=== PATIENT | female | born 1965 | race American Indian/Alaskan Native ===

== ENCOUNTER 2021-03-02 15:09 | Outpatient (CLI) | payer MEDICAID, OTHER ==
--- NOTE | 2021-03-02 17:19 | Vascular Lab Report ---
DUPLEX DOPPLER LOWER EXTREMITY VEINS, RIGHT INDICATION / CLINICAL INFORMATION: STAT RT LEG PAIN. TECHNIQUE: Duplex doppler imaging was performed through the veins of the right lower extremity using venous compression and other maneuvers. COMPARISON: None available. FINDINGS: RIGHT COMMON FEMORAL VEIN: Negative. RIGHT FEMORAL VEIN: Negative. RIGHT POPLITEAL VEIN: Negative. RIGHT CALF VEINS: Acute DVT is noted in the posterior tibial veins. ADDITIONAL FINDINGS: Thrombus is noted in the lesser saphenous vein IMPRESSION: 1. Positive for DVT in the posterior tibial veins. Thrombus is also noted in the lesser saphenous vei n. Patient was sent to the emergency department. Results phoned to the charge nurse in the emergency dep artment. Signer Name: Jeet Bingham MD Signed: 03/02/2021 5:15 PM Workstation Name: [id number]
== END 2021-03-02 15:10 | disposition home or self-care (01) ==
LOC: VAS 15:09
PROVIDERS: ATTEND Emergency Medicine
DX: I82.491 Acute embolism and thrombosis of other specified deep vein of right lower extremity (principal)

== ENCOUNTER 2021-03-02 16:51 | Emergency (ER) | payer MEDICAID, OTHER ==
--- NOTE | 2021-03-02 17:43 | Emergency Department Report ---
ED Lower Extremity HPI - General Stated Complaint: RT FLANK PAIN Time Seen by Provider: 03/02/21 17:28 - History of Present Illness Initial Comments: Chief complaint: "My leg is just hurting.". HPI: This is a 55-year-old female with history of DVT, CVA recent pneumonia who presents with right leg pain since Friday. Gradual onset. Moderately severe at 10. Pain begins at the posterior right knee rating to the right heel. No swelling no trauma. 2 weeks ago patient was admitted at [facility] for pneumonia. In 2016 during treatment for CVA, patient developed left lower extremity DVT. She is currently not taking any medications. Her PCP arrange for Doppler ultrasound today after her appointment to evaluate right lower leg. Patient was diagnosed with DVT and referred to ER. I have reviewed duplex Doppler report: Impression positive for DVT in the posterior tibial veins, thrombus also noted in the lesser saphenous. PCP Dr. Kraft. Medications include B12 folate aspirin senna gabapentin Keppra lisinopril magnesium meloxicam mirtazapine simvastatin vitamin D3 Radha PEÑALOZA Complaint: other (Right leg posterior pain from the right knee radiating to the foot) Injury: Leg: Right, Knee: Right Severity: severe Severity scale (0 -10): 8 Improves With: rest Worsens With: weight bearing, movement, palpation Other Symptoms: other (Patient denies chest pain denies shortness of breath) Treatments Prior to Arrival: other (Evaluation by PCP, Doppler ultrasound outpatient radiology) - Related Data Previous Rx's Medication Instructions Recorded Last Taken Type Apixaban [Eliquis starter pack] 5 mg PO BID #1 tab.ds.pk 03/02/21 Unknown Rx Apixaban [Eliquis] 5 mg PO BID 30 Days #60 tablet 03/02/21 Unknown Rx Allergies Allergy/AdvReac Type Severity Reaction Status Date / Time No Known Allergies Allergy Unverified 03/02/21 17:12 ED Review of Systems ROS: Stated complaint: RT FLANK PAIN Other details as noted in HPI Comment: All other systems reviewed and negative Constitutional: denies: chills, fever, malaise Respiratory: denies: cough, shortness of breath Cardiovascular: denies: chest pain Gastrointestinal: denies: abdominal pain, nausea, vomiting Musculoskeletal: myalgia Skin: denies: rash, lesions ED Past Medical Hx - Past Medical History Previous Medical History?: Yes Hx CVA: Yes Hx Deep Vein Thrombosis: Yes (Left lower DVT 2016) Hx Arthritis: Yes - Family History Family history: diabetes, hypertension - Social History Smoking Status: Never Smoker Substance Use Type: None - Medications Home Medications: Home Medications Medication Instructions Recorded Confirmed Last Taken Type Apixaban [Eliquis starter pack] 5 mg PO BID #1 tab.ds.pk 03/02/21 Unknown Rx Apixaban [Eliquis] 5 mg PO BID 30 Days #60 tablet 03/02/21 Unknown Rx ED Physical Exam - General Limitations: No Limitations General appearance: alert, in no apparent distress - Head Head exam: Present: atraumatic, normocephalic - Eye Eye exam: Present: normal appearance - ENT ENT exam: Present: mucous membranes moist - Neck Neck exam: Present: normal inspection, full ROM - Respiratory Respiratory exam: Present: normal lung sounds bilaterally. Absent: respiratory distress, wheezes, rales, rhonchi - Cardiovascular Cardiovascular Exam: Present: regular rate, normal rhythm, normal heart sounds. Absent: systolic murmur, diastolic murmur, rubs, gallop - GI/Abdominal GI/Abdominal exam: Present: soft, normal bowel sounds. Absent: distended, tenderness, guarding, rebound - Extremities Exam Extremities exam: Present: other (Diffuse tenderness in the posterior right lower extremity, 2+ DP pulse intact, normal coloration no edema) - Back Exam Back exam: Present: normal inspection - Neurological Exam Neurological exam: Present: alert, oriented X3 - Psychiatric Psychiatric exam: Present: normal affect, normal mood - Skin Skin exam: Present: warm, dry, intact, normal color. Absent: rash ED Course Vital Signs 03/02/21 03/02/21 03/02/21 17:10 17:48 17:53 Temperature 97.7 F 98.9 F Pulse Rate 70 88 Respiratory 20 19 19 Rate Blood Pressure 124/89 Blood Pressure 121/78 [Right] O2 Sat by Pulse 99 99 99 Oximetry ED Lower Extremity MDM - Lab Data Result diagrams: 03/02/21 17:45 - Radiology Data Radiology results: report reviewed Patient Name: BOY THAYER Gender: Female Date of : 1965 Referring Provider: GEOVANNI KRAFT Organization: [facility] Accession Number: [id number] Requested Date: March 02, 2021 : Report Status: Final Requested Procedure: 1 Procedure Description: VL venous duplex LE RT Modality: VL Findings Reporting MD: Jeet Bingham Dictation Time: March 02, 2021 16:15 Music Sound Light Technician: Not available Scratch Finisher Date: DUPLEX DOPPLER LOWER EXTREMITY VEINS, RIGHT INDICATION / CLINICAL INFORMATION: STAT RT LEG PAIN. TECHNIQUE: Duplex doppler imaging was performed through the veins of the right lower extremity using venous compression and other maneuvers. COMPARISON: None available. FINDINGS: RIGHT COMMON FEMORAL VEIN: Negative. RIGHT FEMORAL VEIN: Negative. RIGHT POPLITEAL VEIN: Negative. RIGHT CALF VEINS: Acute DVT is noted in the posterior tibial veins. ADDITIONAL FINDINGS: Thrombus is noted in the lesser saphenous vein IMPRESSION: 1. Positive for DVT in the posterior tibial veins. Thrombus is also noted in the lesser saphenous vein. Patient was sent to the emergency department. Results phoned to the charge nurse in the emergency department. Signer Name: Jeet Bingham MD Signed: 03/02/2021 4:15 PM Workstation Name: [id number] - Medical Decision Making Acute DVT: CBC chemistry PT PT PTT obtained to exclude kidney failure, thrombocytopenia or coagulopathy. Patient is appropriate for outpatient therapy with Eliquis. First dose provided in the emergency department. I have encouraged patient to stop taking meloxicam until she is reevaluated by her PCP CBC chemistry PTT within normal limits. I prescribed 7-day starter pack of Eliquis. Patient received first dose in the emergency department. Also prescribed 30 additional days for 40 days total. She understands to follow-up with her PCP for further treatment evaluation. Critical care attestation.: If time is entered above; I have spent that time in minutes in the direct care of this critically ill patient, excluding procedure time. ED Disposition Clinical Impression: Acute deep vein thrombosis of right lower extremity Disposition: HOME / SELF CARE / HOMELESS Is pt being admited?: No Does the pt Need Aspirin: No Condition: Stable Instructions: Deep Vein Thrombosis Prescriptions: Apixaban [Eliquis] 5 mg PO BID 30 Days #60 tablet Apixaban [Eliquis starter pack] 5 mg PO BID #1 tab.ds.pk Referrals: GEOVANNI KRAFT MD [Referring] - 2-3 Days
[2021-03-02 17:54] VITALS: BP 124/89
[2021-03-02 18:11] LABS: Basophils % (Auto) 0.4 % (0.0-1.8); Eosinophils # (Auto) 0.1 K/mm3 (0.0-0.4); Eosinophils % (Auto) 1.6 % (0.0-4.3); Hematocrit 35.1 % (30.3-42.9); Hemoglobin 12.1 gm/dl (10.1-14.3); Lymphocytes # (Auto) 2.6 K/mm3 (1.2-5.4); Lymphocytes % (Auto) 31.7 % (13.4-35.0); Mean Corpuscular HGB Conc 35 % (30-34); Mean Corpuscular Volume 87 fl (79-97); Monocytes # (Auto) 1.2 K/mm3 (0.0-0.8); Monocytes % (Auto) 14.6 % (0.0-7.3); Platelet Count 355 K/mm3 (140-440); Red Blood Count 4.03 M/mm3 (3.65-5.03); Red Cell Distribution Width 13.8 % (13.2-15.2)
[2021-03-02 18:22] LABS: INR 0.93 (0.87-1.13)
[2021-03-02 18:23] LABS: Partial Thromboplastin Time 31.8 Sec. (24.2-36.6)
[2021-03-02 18:24] LABS: Blood Urea Nitrogen 11 mg/dL (7-17); Calcium 9.6 mg/dL (8.4-10.2); Hemolysis Index 29
[2021-03-02 18:26] LABS: BUN/Creatinine Ratio 16
[2021-03-02] MEDS ORDERED: APIXABAN 5 MG TAB PO STA (18:33)
== END 2021-03-02 18:54 | disposition home or self-care (01) ==
LOC: ED 16:51
DX: I82.491 Acute embolism and thrombosis of other specified deep vein of right lower extremity (principal); Z86.73 Personal history of transient ischemic attack (TIA), and cerebral infarction without residual deficits
CPT/HCPCS: 36415; 80048; 85025; 85610; 85730; 99283

== ENCOUNTER 2021-06-16 17:04 | Emergency (ER) | payer OTHER, MEDICAID ==
[2021-06-16 17:09] VITALS: BP 139/74
[2021-06-16 18:42] LABS: Basophils % (Auto) 0.4 % (0.0-1.8); Eosinophils # (Auto) 0.5 K/mm3 (0.0-0.4); Eosinophils % (Auto) 6.4 % (0.0-4.3); Hematocrit 40.3 % (30.3-42.9); Hemoglobin 12.8 gm/dl (10.1-14.3); Lymphocytes # (Auto) 2.8 K/mm3 (1.2-5.4); Lymphocytes % (Auto) 35.7 % (13.4-35.0); Mean Corpuscular HGB Conc 32 % (30-34); Mean Corpuscular Volume 88 fl (79-97); Monocytes # (Auto) 0.5 K/mm3 (0.0-0.8); Monocytes % (Auto) 6.8 % (0.0-7.3); Platelet Count 359 K/mm3 (140-440); Red Blood Count 4.57 M/mm3 (3.65-5.03); Red Cell Distribution Width 14.2 % (13.2-15.2)
[2021-06-16 18:58] LABS: INR 0.95 (0.87-1.13)
[2021-06-16 19:00] LABS: Alanine Aminotransferase 13 units/L (7-56); Albumin 4.5 g/dL (3.9-5); BUN/Creatinine Ratio 16; Blood Urea Nitrogen 16 mg/dL (7-17); Calcium 10.3 mg/dL (8.4-10.2); Hemolysis Index 30
--- NOTE | 2021-06-16 23:34 | Nuclear Medicine Report ---
NUCLEAR MEDICINE PERFUSION LUNG SCAN INDICATION / CLINICAL INFORMATION: SOB. TECHNIQUE: 5.0 mCi of Tc-99m MAA were given by IV. COMPARISON: No chest radiograph performed. FINDINGS: PERFUSION: No significant perfusion defects. ADDITIONAL FINDINGS: None. IMPRESSION: 1. Low probability for pulmonary embolism. Signer Name: Minnie Lamb MD Signed: 06/16/2021 11:29 PM Workstation Name: [id number]
--- NOTE | 2021-06-16 23:46 | Emergency Department Report ---
ED General Adult HPI - General Chief complaint: Dyspnea/Respdistress Stated complaint: DIFFICULTY BREATHING PUI?: No Time Seen by Provider: 06/16/21 17:54 Source: patient Mode of arrival: Ambulatory Limitations: No Limitations - History of Present Illness Initial comments: histoyr of PE on xarelto, feels cob for few weeks -: Gradual Quality: aching Improves with: none - Related Data Previous Rx's Medication Instructions Recorded Last Taken Type Apixaban [Eliquis starter pack] 5 mg PO BID #1 tab.ds.pk 03/02/21 Unknown Rx Apixaban [Eliquis] 5 mg PO BID 30 Days #60 tablet 03/02/21 Unknown Rx Allergies Allergy/AdvReac Type Severity Reaction Status Date / Time No Known Allergies Allergy Unverified 03/02/21 17:12 ED Review of Systems ROS: Stated complaint: DIFFICULTY BREATHING Other details as noted in HPI Constitutional: denies: chills, fever Eyes: denies: eye pain, eye discharge, vision change ENT: denies: ear pain, throat pain Respiratory: denies: cough, shortness of breath, wheezing Cardiovascular: denies: chest pain, palpitations Endocrine: no symptoms reported Gastrointestinal: denies: abdominal pain, nausea, diarrhea Genitourinary: denies: urgency, dysuria, discharge Musculoskeletal: denies: back pain, joint swelling, arthralgia Skin: denies: rash, lesions Neurological: denies: headache, weakness, paresthesias Psychiatric: denies: anxiety, depression Hematological/Lymphatic: denies: easy bleeding, easy bruising ED Past Medical Hx - Past Medical History Previous Medical History?: Yes Hx CVA: Yes Hx Deep Vein Thrombosis: Yes (Left lower DVT 2015) Hx Arthritis: Yes - Surgical History Past Surgical History?: No - Social History Smoking Status: Never Smoker Substance Use Type: None - Medications Home Medications: Home Medications Medication Instructions Recorded Confirmed Last Taken Type Apixaban [Eliquis starter pack] 5 mg PO BID #1 tab.ds.pk 03/02/21 Unknown Rx Apixaban [Eliquis] 5 mg PO BID 30 Days #60 tablet 03/02/21 Unknown Rx ED Physical Exam - General Limitations: No Limitations General appearance: alert, in no apparent distress - Head Head exam: Present: atraumatic, normocephalic - Eye Eye exam: Present: normal appearance - ENT ENT exam: Present: mucous membranes moist - Neck Neck exam: Present: normal inspection - Respiratory Respiratory exam: Present: normal lung sounds bilaterally. Absent: respiratory distress - Cardiovascular Cardiovascular Exam: Present: regular rate, normal rhythm. Absent: systolic murmur, diastolic murmur, rubs, gallop - GI/Abdominal GI/Abdominal exam: Present: soft, normal bowel sounds - Extremities Exam Extremities exam: Present: normal inspection - Back Exam Back exam: Present: normal inspection - Neurological Exam Neurological exam: Present: alert, oriented X3 - Psychiatric Psychiatric exam: Present: normal affect, normal mood - Skin Skin exam: Present: warm, dry, intact, normal color. Absent: rash ED Course Vital Signs 06/16/21 17:07 Temperature 97.9 F Pulse Rate 76 Respiratory 16 Rate Blood Pressure 139/74 [Left] O2 Sat by Pulse 97 Oximetry - Reevaluation(s) Reevaluation #1: 06/16/21 23:45 vss , vq scan negative for PE , no distress ED Medical Decision Making - Lab Data Result diagrams: 06/16/21 18:30 06/16/21 18:30 Critical care attestation.: If time is entered above; I have spent that time in minutes in the direct care of this critically ill patient, excluding procedure time. ED Disposition Clinical Impression: SOB (shortness of breath) Disposition: 01 HOME / SELF CARE / HOMELESS Is pt being admited?: No Does the pt Need Aspirin: No Condition: Stable Referrals: PRIMARY CARE,MD [Primary Care Provider] - 3-5 Days
== END 2021-06-17 01:00 | disposition home or self-care (01) ==
LOC: ED 17:04
DX: R06.02 Shortness of breath (principal)
CPT/HCPCS: 36415; 78580; 80053; 83690; 85025; 85610; 99284; A9540